=== PATIENT | male | born 1950 | race Caucasian/White ===

== ENCOUNTER → 2016-10-17 | Outpatient (CLI) | payer OTHER ==
--- NOTE | 2016-10-17 15:37 | DI ---
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 Previous Exam: 10/14/2013. 3 views are submitted. The patient is status post total reverse left shoulder replacement. There is a lucency through the acromion with sclerosis at the margins consistent with a fracture, probably with delayed or nonunion. There may be a complete AC joint separation. The prosthetic device articulates normally. There is a cerclage around the proximal humerus. There is no evidence of loosening of the p rosthetic device on either side. The visualized portions of the left lung are normal. Readin. Status post total left reverse shoulder replacement. The prosthetic device articulates normally. There is no evidence of loosening of the prosthesis. 2. There is a fracture through the acromion and the margins are sclerotic and this may represent del ayed or nonunion. There may be an AC joint separation.
== END ==
LOC: ORTHO 14:28
DX: M25.512 Pain in left shoulder (principal); Z96.612 Presence of left artificial shoulder joint
CPT/HCPCS: 73030